=== PATIENT | female | born 1980 | race Two or more races ===

== ENCOUNTER 2024-02-24 16:35 | Emergency (ER) | payer MEDICAID, OTHER ==
[~2024-02-24 16:35] MED LIST: TRAM50TA4 PO
== END 2024-02-24 17:02 | disposition left against medical advice (07) ==
LOC: EMS 16:35
DX: Z53.21 Procedure and treatment not carried out due to patient leaving prior to being seen by health care provider (principal)

== ENCOUNTER 2024-02-24 18:08 | Emergency (ER) | payer OTHER ==
[~2024-02-24] VITALS: Ht 172.7 cm; Wt 81.8 kg
[2024-02-24 20:42] LABS: BASOPHILS % (AUTO) 0.9 % (0.0-2.0); EOSINOPHILS % (AUTO) 1.7 % (1.0-6.0); HEMATOCRIT 35.2 % (36-46); HEMOGLOBIN 10.8 g/dL (12.0-16.0); LYMPHOCYTES # (AUTO) 1.1 K/uL (1.0-4.8); LYMPHOCYTES % (AUTO) 25.6 % (22.0-44.0); MEAN CORPUSCULAR HEMOGLOBIN 24.6 pg (26.0-34.0); MEAN CORPUSCULAR HGB CONC 30.7 G/dL (31.0-37.0); MEAN CORPUSCULAR VOLUME 80 fL (80-100); MONOCYTES # (AUTO) 0.3 K/uL (0.1-1.0); MONOCYTES % (AUTO) 7.8 % (2.0-9.0); NEUTROPHILS # (AUTO) 2.8 K/uL (1.8-7.7); PLATELET COUNT (AUTO) 312 K/uL (150-450); RED BLOOD CELL COUNT(AUTO) 4.39 MIL/uL (4.00-5.20); RED CELL DISTRIBUTION WIDTH 17.8 % (11.5-14.5); WHITE BLOOD COUNT (AUTO) 4.3 K/uL (4.5-11.0)
[2024-02-24 20:55] LABS: ANION GAP 9 mmol/L (8-16); CALCIUM, TOTAL 8.6 mg/dL (8.8-10.5); CARBON DIOXIDE 27 mmol/L (22-29); CHLORIDE 103 mmol/L (98-107); CREATININE 0.77 mg/dL (0.60-1.30); GLOMERULAR FILTR. RATE CALC > 60 mL/min (>60); GLUCOSE,RANDOM 107 mg/dL (70-110); POTASSIUM 3.6 mmol/L (3.5-5.1); SODIUM SERUM 139 mmol/L (136-145); UREA NITROGEN, BLOOD 15 mg/dL (7-18)
[2024-02-24] MEDS: OLANZapine 10 MG TABLET PO ONE (21:19)
[2024-02-24] MEDS: DiphenhydrAMINE HCL 25 MG CAPSULE PO ONE (21:19)
[2024-02-24 22:00] VITALS: BP 124/75; PULSE 95; RESP 16; TEMP 97.3; O2SAT 99
== END 2024-02-24 23:09 | disposition home or self-care (01) ==
LOC: EMS 18:10
DX: S05.12XA Contusion of eyeball and orbital tissues, left eye, initial encounter (principal); F15.10 Other stimulant abuse, uncomplicated; F17.210 Nicotine dependence, cigarettes, uncomplicated; Z59.00 Homelessness unspecified; X58.XXXA Exposure to other specified factors, initial encounter; Y93.89 Activity, other specified; Y92.89 Other specified places as the place of occurrence of the external cause; Y99.8 Other external cause status
CPT/HCPCS: 80048; 84703; 85025; 99283

== ENCOUNTER 2024-03-04 22:48 | Emergency (ER) | payer OTHER ==
[~2024-03-04] VITALS: Ht 172.7 cm; Wt 75.0 kg
[2024-03-05 01:00] VITALS: BP 102/64; PULSE 78; RESP 12; O2SAT 97
[2024-03-05] MEDS: IBUPROFEN 600 MG TABLET PO ONE (05:53)
== END 2024-03-05 06:30 | disposition home or self-care (01) ==
LOC: EMS 22:48
DX: Z00.00 Encounter for general adult medical examination without abnormal findings (principal); Z59.00 Homelessness unspecified; F17.210 Nicotine dependence, cigarettes, uncomplicated
CPT/HCPCS: 99283

== ENCOUNTER 2024-03-14 18:01 | Emergency (ER) | payer OTHER ==
[~2024-03-14] VITALS: Ht 172.7 cm; Wt 87.3 kg
[2024-03-14 18:09] VITALS: BP 106/71; PULSE 86; RESP 18; TEMP 97.5; O2SAT 98
[2024-03-14 18:37] LABS: BASOPHILS % (AUTO) 0.7 % (0.0-2.0); EOSINOPHILS % (AUTO) 1.4 % (1.0-6.0); HEMATOCRIT 34.2 % (36-46); HEMOGLOBIN 10.4 g/dL (12.0-16.0); LYMPHOCYTES % (AUTO) 17.9 % (22.0-44.0); MEAN CORPUSCULAR HEMOGLOBIN 24.7 pg (26.0-34.0); MEAN CORPUSCULAR HGB CONC 30.5 G/dL (31.0-37.0); MEAN CORPUSCULAR VOLUME 81 fL (80-100); MONOCYTES # (AUTO) 0.3 K/uL (0.1-1.0); MONOCYTES % (AUTO) 6.4 % (2.0-9.0); NEUTROPHILS # (AUTO) 3.9 K/uL (1.8-7.7); NEUTROPHILS % (AUTO) 73.6 % (40.0-70.0); PLATELET COUNT (AUTO) 340 K/uL (150-450); RED BLOOD CELL COUNT(AUTO) 4.22 MIL/uL (4.00-5.20); RED CELL DISTRIBUTION WIDTH 17.7 % (11.5-14.5); WHITE BLOOD COUNT (AUTO) 5.3 K/uL (4.5-11.0)
[2024-03-14 18:46] LABS: ANION GAP 7 mmol/L (8-16); CALCIUM, TOTAL 8.8 mg/dL (8.8-10.5); CARBON DIOXIDE 28 mmol/L (22-29); CHLORIDE 104 mmol/L (98-107); CREATININE 0.61 mg/dL (0.60-1.30); GLOMERULAR FILTR. RATE CALC > 60 mL/min (>60); GLUCOSE,RANDOM 100 mg/dL (70-110); SODIUM SERUM 139 mmol/L (136-145); UREA NITROGEN, BLOOD 10 mg/dL (7-18)
[2024-03-14 19:57] LABS: APPEARANCE,URINE HAZY (CLEAR); BILIRUBIN,URINE NEGATIVE (NEGATIVE); COLOR,URINE YELLOW (YELLOW); GLUCOSE, URINE (UA) NEGATIVE (NEGATIVE); KETONES,URINE NEGATIVE (NEGATIVE); LEUKOCYTE ESTERASE ,URINE LARGE (NEGATIVE); NITRATE,URINE NEGATIVE (NEGATIVE); OCCULT BLOOD,URINE TRACE (NEGATIVE); PROTEIN,URINE 30-70 mg/dL (NEGATIVE); SPECIFIC GRAVITIY, URINE 1.025 (1.003-1.030)
[2024-03-14 20:16] LABS: BACTERIA,URINE Rare /HPF (None Seen); RBC,URINE 0-2 /HPF (0-2); SQUAMOUS EPITHELIAL CELL,UR Few /LPF (None Seen); WBC,URINE 26-50 /HPF (0-5)
[2024-03-14] MEDS: CefTRIAXone SODIUM 1 GM/VIAL IM ONE (20:37)
[2024-03-14] MEDS: LIDOCAINE/PF 1% 2 ML VIAL IM ONE (20:38)
[2024-03-14] MEDS: OLANZapine 10 MG TABLET PO ONE (23:45)
== END 2024-03-15 02:57 | disposition home or self-care (01) ==
LOC: EMS 18:03
DX: N39.0 Urinary tract infection, site not specified (principal); F17.210 Nicotine dependence, cigarettes, uncomplicated
CPT/HCPCS: 99283; 80048; 81001; 85025; 36415; 87086; 87186; 96372; J0696; J3490

== ENCOUNTER 2024-03-16 21:30 | Emergency (ER) | payer OTHER ==
[~2024-03-16] VITALS: Ht 172.7 cm; Wt 81.8 kg
[2024-03-16 21:37] VITALS: TEMP 97.5
[2024-03-17 01:09] LABS: BASOPHILS % (AUTO) 0.6 % (0.0-2.0); EOSINOPHILS % (AUTO) 1.2 % (1.0-6.0); HEMATOCRIT 34.4 % (36-46); HEMOGLOBIN 10.7 g/dL (12.0-16.0); LYMPHOCYTES # (AUTO) 1.6 K/uL (1.0-4.8); LYMPHOCYTES % (AUTO) 26.4 % (22.0-44.0); MEAN CORPUSCULAR HGB CONC 31.3 G/dL (31.0-37.0); MEAN CORPUSCULAR VOLUME 80 fL (80-100); MONOCYTES # (AUTO) 0.4 K/uL (0.1-1.0); MONOCYTES % (AUTO) 6.4 % (2.0-9.0); NEUTROPHILS % (AUTO) 65.4 % (40.0-70.0); PLATELET COUNT (AUTO) 357 K/uL (150-450); RED BLOOD CELL COUNT(AUTO) 4.29 MIL/uL (4.00-5.20); RED CELL DISTRIBUTION WIDTH 17.4 % (11.5-14.5); WHITE BLOOD COUNT (AUTO) 6.1 K/uL (4.5-11.0)
[2024-03-17 01:12] LABS: ANION GAP 11 mmol/L (8-16); CALCIUM, TOTAL 8.6 mg/dL (8.8-10.5); CARBON DIOXIDE 27 mmol/L (22-29); CHLORIDE 100 mmol/L (98-107); CREATININE 0.65 mg/dL (0.60-1.30); GLOMERULAR FILTR. RATE CALC > 60 mL/min (>60); GLUCOSE,RANDOM 141 mg/dL (70-110); POTASSIUM 3.8 mmol/L (3.5-5.1); SODIUM SERUM 138 mmol/L (136-145); UREA NITROGEN, BLOOD 13 mg/dL (7-18)
[2024-03-17 01:16] LABS: ALCOHOL, BLOOD (SERUM) < 3 mg/dL (0-10)
[2024-03-17 01:22] LABS: PH,URINE DRUG SCREEN 6.5 (5.0-8.0)
[2024-03-17 01:28] LABS: ALCOHOL, URINE DRUG SCREEN NEGATIVE (NEGATIVE); AMPHET/METH SCREEN,URINE POSITIVE (NEGATIVE); BARBITURATE SCREEN, URINE NEGATIVE (NEGATIVE); BENZODIAZEPINES SCREEN,URINE NEGATIVE (NEGATIVE); CANNABINOID SCREEN,URINE NEGATIVE (NEGATIVE); COCAINE SCREEN,URINE NEGATIVE (NEGATIVE); METHADONE SCREEN, URINE NEGATIVE (NEGATIVE); OPIATE SCREEN,URINE NEGATIVE (NEGATIVE); PHENCYCLIDINE SCREEN,URINE NEGATIVE (NEGATIVE)
[2024-03-17] MEDS: OLANZapine 10 MG TABLET PO ONE (01:34)
[2024-03-17] MEDS: LORazepam 1 MG TABLET PO ONE (01:35)
[2024-03-17] MEDS ORDERED: ARIP10TA38 PO (01:46)
[2024-03-17 05:02] VITALS: BP 93/58; PULSE 83; RESP 20; O2SAT 97
== END 2024-03-17 05:07 | disposition home or self-care (01) ==
LOC: EMS 21:30
DX: F41.9 Anxiety disorder, unspecified (principal); F15.10 Other stimulant abuse, uncomplicated; F17.210 Nicotine dependence, cigarettes, uncomplicated; Z87.440 Personal history of urinary (tract) infections; Z90.49 Acquired absence of other specified parts of digestive tract; Z79.899 Other long term (current) drug therapy
CPT/HCPCS: 99283; 80048; 85025; 36415; 80307; G0480

== ENCOUNTER 2024-03-19 23:43 | Emergency (ER) | payer OTHER ==
[~2024-03-19] VITALS: Ht 172.7 cm; Wt 81.8 kg
[~2024-03-19 23:43] MED LIST changes: +ARIP10TA38 PO; -TRAM50TA4 PO
[2024-03-19 23:53] VITALS: TEMP 97.8
[2024-03-20 01:21] LABS: BASOPHILS % (AUTO) 1.5 % (0.0-2.0); EOSINOPHILS % (AUTO) 3.1 % (1.0-6.0); HEMOGLOBIN 9.8 g/dL (12.0-16.0); LYMPHOCYTES # (AUTO) 1.2 K/uL (1.0-4.8); LYMPHOCYTES % (AUTO) 27.3 % (22.0-44.0); MEAN CORPUSCULAR HEMOGLOBIN 24.7 pg (26.0-34.0); MEAN CORPUSCULAR HGB CONC 30.7 G/dL (31.0-37.0); MEAN CORPUSCULAR VOLUME 81 fL (80-100); MONOCYTES # (AUTO) 0.4 K/uL (0.1-1.0); MONOCYTES % (AUTO) 8.5 % (2.0-9.0); NEUTROPHILS # (AUTO) 2.5 K/uL (1.8-7.7); NEUTROPHILS % (AUTO) 59.6 % (40.0-70.0); PLATELET COUNT (AUTO) 293 K/uL (150-450); RED BLOOD CELL COUNT(AUTO) 3.97 MIL/uL (4.00-5.20); RED CELL DISTRIBUTION WIDTH 17.2 % (11.5-14.5); WHITE BLOOD COUNT (AUTO) 4.2 K/uL (4.5-11.0)
[2024-03-20 01:32] LABS: ANION GAP 9 mmol/L (8-16); CALCIUM, TOTAL 8.7 mg/dL (8.8-10.5); CARBON DIOXIDE 27 mmol/L (22-29); CHLORIDE 103 mmol/L (98-107); CREATININE 0.68 mg/dL (0.60-1.30); GLOMERULAR FILTR. RATE CALC > 60 mL/min (>60); GLUCOSE,RANDOM 98 mg/dL (70-110); POTASSIUM 4.1 mmol/L (3.5-5.1); SODIUM SERUM 139 mmol/L (136-145); UREA NITROGEN, BLOOD 15 mg/dL (7-18)
[2024-03-20 01:38] LABS: ALCOHOL, BLOOD (SERUM) < 3 mg/dL (0-10)
[2024-03-20 02:29] VITALS: BP 112/58; PULSE 79; RESP 16; O2SAT 100
[2024-03-20 04:09] LABS: VALPROIC ACID < 3 mcg/mL (50-100)
[2024-03-20 04:22] LABS: LITHIUM < 0.20 mmol/L (0.60-1.20)
== END 2024-03-20 07:53 | disposition admitted as inpatient to this hospital (09) ==
LOC: EMS 03-20
DX: F25.9 Schizoaffective disorder, unspecified (principal); F31.9 Bipolar disorder, unspecified; F17.210 Nicotine dependence, cigarettes, uncomplicated; Z87.440 Personal history of urinary (tract) infections; Z90.49 Acquired absence of other specified parts of digestive tract; Z79.899 Other long term (current) drug therapy
CPT/HCPCS: 99284; 80048; 80164; 80178; 85025; 36415; G0480

== ENCOUNTER 2024-03-24 22:10 | Inpatient (IN) | payer MEDICAID, OTHER ==
[~2024-03-24] VITALS: Ht 172.7 cm; Wt 88.8 kg
[2024-03-24 23:34] LABS: BASOPHILS % (AUTO) 1.2 % (0.0-2.0); EOSINOPHILS % (AUTO) 1.1 % (1.0-6.0); HEMOGLOBIN 9.6 g/dL (12.0-16.0); LYMPHOCYTES # (AUTO) 1.2 K/uL (1.0-4.8); LYMPHOCYTES % (AUTO) 25.7 % (22.0-44.0); MEAN CORPUSCULAR HEMOGLOBIN 24.8 pg (26.0-34.0); MEAN CORPUSCULAR HGB CONC 31.1 G/dL (31.0-37.0); MEAN CORPUSCULAR VOLUME 80 fL (80-100); MONOCYTES # (AUTO) 0.5 K/uL (0.1-1.0); MONOCYTES % (AUTO) 9.8 % (2.0-9.0); NEUTROPHILS # (AUTO) 2.8 K/uL (1.8-7.7); NEUTROPHILS % (AUTO) 62.2 % (40.0-70.0); PLATELET COUNT (AUTO) 310 K/uL (150-450); RED BLOOD CELL COUNT(AUTO) 3.88 MIL/uL (4.00-5.20); WHITE BLOOD COUNT (AUTO) 4.6 K/uL (4.5-11.0)
[2024-03-24 23:43] LABS: ANION GAP 10 mmol/L (8-16); CALCIUM, TOTAL 9.1 mg/dL (8.8-10.5); CARBON DIOXIDE 24 mmol/L (22-29); CHLORIDE 100 mmol/L (98-107); CREATININE 0.63 mg/dL (0.60-1.30); GLOMERULAR FILTR. RATE CALC > 60 mL/min (>60); GLUCOSE,RANDOM 109 mg/dL (70-110); POTASSIUM 3.9 mmol/L (3.5-5.1); SODIUM SERUM 134 mmol/L (136-145); UREA NITROGEN, BLOOD 13 mg/dL (7-18)
[2024-03-24 23:57] LABS: COVID AG,FIA SOURCE NASAL SWAB
[2024-03-25] LABS: ALCOHOL, BLOOD (SERUM) < 3 mg/dL (0-10)
[2024-03-25 00:28] LABS: SARS-COV2 (COVID) ANTIGEN,FIA Negative (Negative)
[2024-03-25] MEDS ORDERED: LOPERAMIDE HCL 2 MG CAPSULE PO PRN (13:00)
[2024-03-25] MEDS ORDERED: MAGNESIUM HYDROXIDE SUSPENSION 30 ML UDCUP PO PRN (13:00)
[2024-03-25] MEDS ORDERED: MAG HYDROX/ALUMINUM HYD/SIMETH ES 30 ML SUSPENSION UDCUP PO PRN (13:00)
[2024-03-25] MEDS: LORazepam 2 MG TABLET PO PRN (15:13)
[2024-03-25] MEDS: HALOPERIDOL 5 MG TABLET PO PRN (15:15)
[2024-03-25 22:17] VITALS: O2SAT 97
[2024-03-26] MEDS ORDERED: GuaiFENesin/D-METHORPHAN [SUGAR-FREE] 200-20MG/10 ML SYRUP UDCUP PO PRN (00:15)
[2024-03-26] MEDS ORDERED: MAG HYDROX/ALUMINUM HYD/SIMETH ES 30 ML SUSPENSION UDCUP PO PRN (00:15)
[2024-03-26] MEDS ORDERED: LOPERAMIDE HCL 2 MG CAPSULE PO PRN (00:15)
[2024-03-26] MEDS ORDERED: MAGNESIUM HYDROXIDE SUSPENSION 30 ML UDCUP PO PRN (00:15)
[2024-03-26] MEDS ORDERED: ACETAMINOPHEN 325 MG TABLET PO PRN (00:15)
[2024-03-26] MEDS ORDERED: CloNIDine HCL 0.1 MG TABLET PO PRN (00:15)
[2024-03-26] MEDS ORDERED: ALBUTEROL SULFATE HFA 90 MCG/PUFF 8 GM INHALER IH PRN (00:15)
[2024-03-26] MEDS: INFLUENZA VIRUS VACCINE TVS (6MO+) 2024-25/PF 45 MCG/0.5 ML SYRINGE IM. ONE (00:15)
[2024-03-26] MEDS ORDERED: NICOTINE 14 MG/24 HOUR PATCH TD PRN (00:15)
[2024-03-26] MEDS ORDERED: PETROLATUM,WHITE 28 GM JELLY TP PRN (00:15)
[2024-03-26] MEDS ORDERED: ONDANSETRON 4 MG TABLET PO PRN (00:15)
[2024-03-26] MEDS: ARIPiprazole 10 MG TABLET PO SCH (14:06)
[2024-03-27 06:11] VITALS: BP 124/81; PULSE 85; RESP 18; TEMP 98.1
[2024-03-27] MEDS: IBUPROFEN 400 MG TABLET PO PRN (06:11)
[2024-03-27 07:11] VITALS: RESP 18
[2024-03-27 10:11] VITALS: BP 99/54; PULSE 80; RESP 18; TEMP 97.8; O2SAT 96
[2024-03-27] MEDS: DOCUSATE SODIUM 100 MG CAPSULE PO PRN (21:54)
[2024-03-27 22:46] VITALS: BP 145/63; PULSE 80; RESP 18; TEMP 97.7; O2SAT 98
[2024-03-28 00:20] VITALS: BP 130/80; PULSE 76; RESP 20; TEMP 98; O2SAT 97
[2024-03-28 01:25] VITALS: RESP 18
[2024-03-28 05:15] VITALS: BP 120/82; PULSE 81; RESP 19; TEMP 97.6; O2SAT 98
[2024-03-28] MEDS: ACETAMINOPHEN 325 MG TABLET PO PRN (05:22)
[2024-03-28 06:22] VITALS: RESP 18
[2024-03-28 07:20] LABS: BASOPHILS % (AUTO) 1.2 % (0.0-2.0); HEMATOCRIT 34.7 % (36-46); HEMOGLOBIN 10.7 g/dL (12.0-16.0); LYMPHOCYTES # (AUTO) 1.5 K/uL (1.0-4.8); LYMPHOCYTES % (AUTO) 32.4 % (22.0-44.0); MEAN CORPUSCULAR HEMOGLOBIN 24.8 pg (26.0-34.0); MEAN CORPUSCULAR HGB CONC 30.8 G/dL (31.0-37.0); MEAN CORPUSCULAR VOLUME 81 fL (80-100); MONOCYTES # (AUTO) 0.4 K/uL (0.1-1.0); MONOCYTES % (AUTO) 9.7 % (2.0-9.0); NEUTROPHILS # (AUTO) 2.5 K/uL (1.8-7.7); NEUTROPHILS % (AUTO) 54.7 % (40.0-70.0); PLATELET COUNT (AUTO) 330 K/uL (150-450); RED BLOOD CELL COUNT(AUTO) 4.31 MIL/uL (4.00-5.20); RED CELL DISTRIBUTION WIDTH 16.9 % (11.5-14.5); WHITE BLOOD COUNT (AUTO) 4.6 K/uL (4.5-11.0)
[2024-03-28 07:35] LABS: HEMOGLOBIN A1C 6.2 % (3.8-5.6)
[2024-03-28 07:42] LABS: CHOL/HDL RATIO 1.7 (3.9-5.7)
[2024-03-28 07:47] LABS: ALANINE AMINOTRANSFERASE 20 U/L (12-78); ALBUMIN 3.1 g/dL (3.4-5.0); ALKALINE PHOSPHATASE 85 U/L (46-116); ANION GAP 9 mmol/L (8-16); ASPARTATE AMINOTRANSFERASE 20 U/L (15-37); BILIRUBIN,TOTAL 0.4 mg/dL (0.1-1.0); CALCIUM, TOTAL 8.4 mg/dL (8.8-10.5); CARBON DIOXIDE 28 mmol/L (22-29); CHLORIDE 100 mmol/L (98-107); CREATININE 0.76 mg/dL (0.60-1.30); GLOMERULAR FILTR. RATE CALC > 60 mL/min (>60); GLUCOSE,RANDOM 124 mg/dL (70-110); POTASSIUM 3.7 mmol/L (3.5-5.1); SODIUM SERUM 137 mmol/L (136-145); THYROID STIMULATING HORMONE 2.18 uIU/mL (0.36-3.74); TOTAL PROTEIN, SERUM 7.5 g/dL (6.4-8.2); UREA NITROGEN, BLOOD 11 mg/dL (7-18)
[2024-03-28] MEDS: MULTIVITAMINS WITH MINERALS, THERAPEUTIC TABLET PO SCH (08:01)
[2024-03-28 09:21] VITALS: BP 108/65; PULSE 82; RESP 19; TEMP 98.3; O2SAT 98
[2024-03-28 21:14] VITALS: BP 111/61; PULSE 76; RESP 18; TEMP 97.7; O2SAT 99
[2024-03-29] MEDS: TraMADol HCL 50 MG TABLET PO PRN ×2 (09:58→16:34)
[2024-03-29 21:49] VITALS: BP 105/77; PULSE 88; RESP 18; TEMP 97.2; O2SAT 97
[2024-03-29] MEDS: ZOLPIDEM TARTRATE 10 MG TABLET PO PRN (22:17)
[2024-03-30 08:18] VITALS: BP 122/74; PULSE 77; RESP 18; TEMP 97.8
[2024-03-30 09:18] VITALS: BP 119/76; PULSE 71; RESP 17; TEMP 98
[2024-03-30 09:20] VITALS: BP 122/74; PULSE 77; RESP 19; TEMP 97.8; O2SAT 95
[2024-03-30 17:51] VITALS: BP 128/69; RESP 17; TEMP 98
[2024-03-30 18:51] VITALS: BP 129/71; PULSE 74; RESP 18; TEMP 97.9
[2024-03-30 20:35] VITALS: BP 131/81; PULSE 78; RESP 18; TEMP 97.2; O2SAT 97
[2024-03-31 06:25] VITALS: BP 132/77; PULSE 134; RESP 18; TEMP 97.4; O2SAT 96
[2024-03-31 07:29] VITALS: BP 110/72; PULSE 78; RESP 17; TEMP 97.9
[2024-03-31 08:59] VITALS: BP 108/69; PULSE 70; RESP 18; TEMP 97.6; O2SAT 98
[2024-03-31 14:52] VITALS: BP 118/72; PULSE 77; RESP 18; TEMP 98
[2024-03-31 15:42] VITALS: BP 116/79; PULSE 72; RESP 18; TEMP 97.8
[2024-03-31 20:51] VITALS: BP 106/60; PULSE 90; RESP 18; TEMP 99.3
[2024-04-01 09:16] VITALS: BP 110/70; PULSE 97; RESP 19; TEMP 97.9; O2SAT 98
[2024-04-01 14:51] VITALS: BP 120/74; PULSE 90; RESP 20; TEMP 98
[2024-04-01 20:00] VITALS: BP 109/70; PULSE 84; RESP 18; TEMP 98.2; O2SAT 96
[2024-04-01] MEDS: CIPROFLOXACIN HCL 0.2%/HYDROCORT 1% 10 ML OTIC SUSPENSION AD PRN (20:51)
[2024-04-01 23:23] VITALS: BP 109/70; PULSE 84; RESP 18; TEMP 98.2; O2SAT 96
[2024-04-02] VITALS (9 sets, daily range): BP systolic 97–125; BP diastolic 57–80; PULSE 75–87; RESP 18; TEMP 98.9; O2SAT 98–99
[2024-04-03 06:32] VITALS: BP 128/82; PULSE 77; RESP 18; TEMP 97; O2SAT 98
[2024-04-03 07:45] VITALS: RESP 18
[2024-04-03 08:53] VITALS: BP 116/69; PULSE 70; RESP 18; TEMP 98.3; O2SAT 98
[2024-04-03 12:16] VITALS: BP 112/69; PULSE 89; RESP 18; O2SAT 98
[2024-04-03 13:16] VITALS: RESP 18
[2024-04-03 21:28] VITALS: BP 117/71; PULSE 82; RESP 18; TEMP 97.6; O2SAT 98
[2024-04-04 05:35] VITALS: BP 106/71; PULSE 70; RESP 18; TEMP 97.8; O2SAT 97
[2024-04-04 06:35] VITALS: RESP 19
[2024-04-04 09:59] VITALS: BP 118/72; PULSE 94; RESP 17; TEMP 96.6
[2024-04-05 00:32] VITALS: RESP 18
[2024-04-05 01:35] VITALS: RESP 18
[2024-04-05 10:23] VITALS: BP 113/78; PULSE 93; RESP 17; TEMP 97.6; O2SAT 100
[2024-04-05 21:49] VITALS: BP 102/62; PULSE 97; RESP 20; TEMP 97.7; O2SAT 95
[2024-04-06] VITALS (13 sets, daily range): BP systolic 98–127; BP diastolic 57–83; PULSE 87–105; RESP 18–20; TEMP 97.1–98.3; O2SAT 96–97
[2024-04-07 04:57] VITALS: BP 102/67; PULSE 90; RESP 18; TEMP 97.6
[2024-04-07 05:57] VITALS: RESP 18
[2024-04-07 08:54] VITALS: BP 91/55; PULSE 83; RESP 17; O2SAT 100
[2024-04-07 15:40] VITALS: BP 120/79; PULSE 89; RESP 20
[2024-04-07 20:58] VITALS: RESP 18
[2024-04-08 01:44] VITALS: RESP 18
[2024-04-08 02:47] VITALS: RESP 18
[2024-04-08 04:45] VITALS: BP 122/77; PULSE 87; RESP 18; TEMP 98; O2SAT 98
[2024-04-08 05:49] VITALS: RESP 18
[2024-04-08 07:47] VITALS: BP 122/77; PULSE 87; RESP 18; TEMP 98; O2SAT 98
[2024-04-08] MEDS: ARIPiprazole 5 MG TABLET PO SCH (09:03)
[2024-04-08] MEDS: BuPROPion HCL XL 150 MG ER TABLET PO SCH (09:03)
[2024-04-08] MEDS ORDERED: BUPR-514 PO (10:11)
[2024-04-08] MEDS ORDERED: ARIP5TAB37 PO (10:11)
[2024-04-08 11:13] VITALS: BP 108/70; PULSE 84; RESP 18; TEMP 98.1; O2SAT 98
== END 2024-04-08 17:26 | disposition home or self-care (01) | DRG 750 ==
LOC: EMS 22:12 → EDH 03-25 14:05 → 3EI 03-25 22:26
PROVIDERS: ADMIT Psychiatry & Neurology Psychiatry; ATTEND Psychiatry & Neurology Psychiatry
PROC: GZHZZZZ Group Psychotherapy (ICD-10-PCS; principal; 2024-03-26)
PROC: GZ52ZZZ Individual Psychotherapy, Cognitive (ICD-10-PCS; 2024-03-26)
DX: F20.0 Paranoid schizophrenia (principal); E87.1 Hypo-osmolality and hyponatremia; F10.10 Alcohol abuse, uncomplicated; F12.90 Cannabis use, unspecified, uncomplicated; Z20.822 Contact with and (suspected) exposure to COVID-19; F15.10 Other stimulant abuse, uncomplicated; D64.9 Anemia, unspecified; Z79.899 Other long term (current) drug therapy; Z87.891 Personal history of nicotine dependence; Z91.148 Patient's other noncompliance with medication regimen for other reason; Z87.440 Personal history of urinary (tract) infections
CPT/HCPCS: 70450; 72100; 72220; 80048; 80053; 80061; 83036; 84443; 84703; 85025; 99285; G0480

== ENCOUNTER 2024-04-21 20:51 | Emergency (ER) | payer MEDICAID, OTHER ==
[~2024-04-21] VITALS: Ht 172.7 cm; Wt 86.4 kg
[~2024-04-21 20:51] MED LIST changes: -ARIP10TA38 PO; +ARIP5TAB37 PO; +BUPR-514 PO
[2024-04-21 21:04] VITALS: TEMP 98.7
[2024-04-21 22:59] VITALS: BP 108/58; PULSE 83; RESP 18; O2SAT 98
[2024-04-21] MEDS ORDERED: BACTDSB PO (23:23)
[2024-04-21] MEDS: SULFAMETHOX/TRIMETH DS 800-160 MG/TABLET PO ONE (23:30)
[2024-04-21] MEDS: TraMADol HCL 50 MG TABLET PO ONE (23:30)
== END 2024-04-22 02:15 | disposition home or self-care (01) ==
LOC: EMS 20:51
DX: T21.12XA Burn of first degree of abdominal wall, initial encounter (principal); T31.0 Burns involving less than 10% of body surface; F41.9 Anxiety disorder, unspecified; F12.90 Cannabis use, unspecified, uncomplicated; F15.90 Other stimulant use, unspecified, uncomplicated; Z79.899 Other long term (current) drug therapy; X08.8XXA Exposure to other specified smoke, fire and flames, initial encounter; Y93.89 Activity, other specified; Y92.89 Other specified places as the place of occurrence of the external cause; Y99.8 Other external cause status
CPT/HCPCS: 16000; 99283

== ENCOUNTER 2024-05-26 11:24 | Emergency (ER) | payer OTHER ==
[~2024-05-26] VITALS: Ht 172.7 cm; Wt 81.0 kg
[2024-05-26 11:35] VITALS: TEMP 98.7
[2024-05-26 12:05] LABS: HEMATOCRIT 33.2 % (36-46); HEMOGLOBIN 10.2 g/dL (12.0-16.0); MEAN CORPUSCULAR HEMOGLOBIN 24.7 pg (26.0-34.0); MEAN CORPUSCULAR HGB CONC 30.9 G/dL (31.0-37.0); MEAN CORPUSCULAR VOLUME 80 fL (80-100); PLATELET COUNT (AUTO) 272 K/uL (150-450); RED BLOOD CELL COUNT(AUTO) 4.15 MIL/uL (4.00-5.20); RED CELL DISTRIBUTION WIDTH 17.1 % (11.5-14.5); WHITE BLOOD COUNT (AUTO) 4.1 K/uL (4.5-11.0)
[2024-05-26] MEDS: KETOROLAC TROMETHAMINE 60 MG/2 ML VIAL IM ONE (12:08)
[2024-05-26 12:14] LABS: ANION GAP 4 mmol/L (8-16); CALCIUM, TOTAL 8.6 mg/dL (8.8-10.5); CARBON DIOXIDE 28 mmol/L (22-29); CHLORIDE 104 mmol/L (98-107); CREATININE 0.59 mg/dL (0.60-1.30); GLOMERULAR FILTR. RATE CALC > 60 mL/min (>60); GLUCOSE,RANDOM 124 mg/dL (70-110); POTASSIUM 3.9 mmol/L (3.5-5.1); SODIUM SERUM 136 mmol/L (136-145); UREA NITROGEN, BLOOD 13 mg/dL (7-18)
[2024-05-26 12:21] LABS: BAND NEUTROPHILS % (MANUAL) 1 % (0-5); BASOPHILS % (MANUAL) 1 % (0-2); EOSINOPHILS % (MANUAL) 1 % (1-6); LYMPHOCYTES % (MANUAL) 18 % (22-44); MONOCYTES % (MANUAL) 2 % (2-9); REACTIVE LYMPHOCYTES 5 % (0-0); SEGMENTED NEUTROPHILS % 72 % (40-70); TOTAL CELLS COUNTED 100
[2024-05-26 12:36] LABS: COVID AG,FIA SOURCE NASAL SWAB
[2024-05-26 13:04] LABS: INFLUENZA TYPE A NEGATIVE FOR TYPE A (NEGATIVE); INFLUENZA TYPE B NEGATIVE FOR TYPE B (NEGATIVE)
[2024-05-26 13:23] LABS: SARS-COV2 (COVID) ANTIGEN,FIA Negative (Negative)
[2024-05-26 13:45] VITALS: BP 125/75; PULSE 80; RESP 18; O2SAT 97
== END 2024-05-26 14:16 | disposition home or self-care (01) ==
LOC: EMS 11:25
DX: R07.89 Other chest pain (principal); M54.50 Low back pain, unspecified; M54.6 Pain in thoracic spine; F12.90 Cannabis use, unspecified, uncomplicated; F20.9 Schizophrenia, unspecified; F41.9 Anxiety disorder, unspecified; Z91.041 Radiographic dye allergy status; Z88.8 Allergy status to other drugs, medicaments and biological substances; Z79.899 Other long term (current) drug therapy; Z20.822 Contact with and (suspected) exposure to COVID-19
CPT/HCPCS: 99284; 71045; 87426; 80048; 85007; 85027; 87804; 36415; 96372; J1885

== ENCOUNTER 2024-08-03 19:12 | Emergency (ER) | payer OTHER ==
[~2024-08-03] VITALS: Ht 172.7 cm; Wt 77.3 kg
[2024-08-03 19:23] VITALS: BP 137/71; PULSE 90; RESP 16; TEMP 98.2; O2SAT 99
[2024-08-03] MEDS: IBUPROFEN 600 MG TABLET PO ONE (22:18)
[2024-08-03] MEDS: ACETAMINOPHEN 500 MG TABLET PO ONE (22:18)
[2024-08-03] MEDS ORDERED: ACET-66 PO (22:37)
[2024-08-03] MEDS ORDERED: IBUP-1554 PO (22:37)
== END 2024-08-03 23:12 | disposition home or self-care (01) ==
LOC: EMS 19:12
DX: S93.401A Sprain of unspecified ligament of right ankle, initial encounter (principal); M54.2 Cervicalgia; M25.561 Pain in right knee; F41.9 Anxiety disorder, unspecified; F25.9 Schizoaffective disorder, unspecified; F17.210 Nicotine dependence, cigarettes, uncomplicated; Z88.8 Allergy status to other drugs, medicaments and biological substances; Z91.041 Radiographic dye allergy status; Z79.899 Other long term (current) drug therapy; Y04.8XXA Assault by other bodily force, initial encounter; Y93.89 Activity, other specified; Y92.89 Other specified places as the place of occurrence of the external cause; Y99.8 Other external cause status
CPT/HCPCS: 99283

== ENCOUNTER 2025-05-07 03:14 | Emergency (ER) | payer MEDICAID, OTHER ==
[~2025-05-07] VITALS: Ht 172.7 cm; Wt 84.1 kg
[2025-05-07 03:40] VITALS: TEMP 97.9; O2SAT 98
[2025-05-07 06:00] VITALS: BP 101/61; PULSE 70; RESP 16
[2025-05-07 07:08] LABS: PLATELET COUNT (AUTO) 254 K/uL (150-450); RED BLOOD CELL COUNT(AUTO) 3.67 MIL/uL (4.00-5.20); RED CELL DISTRIBUTION WIDTH 17.6 % (11.5-14.5); WHITE BLOOD COUNT (AUTO) 3.4 K/uL (4.5-11.0)
[2025-05-07 07:23] LABS: CALCIUM, TOTAL 8.4 mg/dL (8.8-10.5); CREATININE 0.62 mg/dL (0.60-1.30); GLOMERULAR FILTR. RATE CALC > 60 mL/min (>60); GLUCOSE,RANDOM 99 mg/dL (70-110); SODIUM SERUM 141 mmol/L (136-145); UREA NITROGEN, BLOOD 18 mg/dL (7-18)
[2025-05-07 07:31] LABS: COVID AG,FIA SOURCE NASAL SWAB
[2025-05-07 08:16] LABS: SARS-COV2 (COVID) ANTIGEN,FIA Negative (Negative)
[2025-05-07 10:52] LABS: RBC MORPHOLOGY COMMENT ABNORMAL RBC MORPH
== END 2025-05-07 11:40 | disposition home or self-care (01) ==
LOC: EMS 03:14
DX: R21 Rash and other nonspecific skin eruption (principal); F25.1 Schizoaffective disorder, depressive type; F12.90 Cannabis use, unspecified, uncomplicated; F15.90 Other stimulant use, unspecified, uncomplicated; F17.210 Nicotine dependence, cigarettes, uncomplicated; Z88.8 Allergy status to other drugs, medicaments and biological substances; Z98.84 Bariatric surgery status; Z20.822 Contact with and (suspected) exposure to COVID-19
CPT/HCPCS: 99283; 87426; 80048; 85025; 36415; G0480

== ENCOUNTER 2025-05-26 02:56 | Emergency (ER) | payer OTHER ==
[~2025-05-26] VITALS: Ht 172.7 cm; Wt 81.3 kg
[2025-05-26 03:01] VITALS: BP 140/95; PULSE 87; RESP 18; TEMP 97.7; O2SAT 99
== END 2025-05-26 05:35 | disposition home or self-care (01) ==
LOC: EMS 02:56
DX: F25.1 Schizoaffective disorder, depressive type (principal); F15.10 Other stimulant abuse, uncomplicated; F17.210 Nicotine dependence, cigarettes, uncomplicated; F12.90 Cannabis use, unspecified, uncomplicated; Z88.8 Allergy status to other drugs, medicaments and biological substances; Z98.84 Bariatric surgery status
CPT/HCPCS: 99284; Z7502; Z7610